=== PATIENT | male | born 1995 | race Two or more races ===

== ENCOUNTER 2021-04-17 07:43 | Emergency (ER) | payer SELFPAY ==
[~2021-04-17] VITALS: Ht 172.7 cm; Wt 91.0 kg
[2021-04-17] MEDS ORDERED: DICYCLOMINE 10 MG/5 ML ORAL SYR PO STA (08:04)
[2021-04-17] MEDS ORDERED: VISCOUS LIDOCAINE 2% 15 ML UDC PO STA (08:04)
[2021-04-17] MEDS ORDERED: ONDANSETRON 4MG ODT PO STA (08:04)
[2021-04-17] MEDS ORDERED: MAGNESIUM/ALUMINUM HYDROXIDE/SIMETHICONE 30ML UDC PO STA (08:04)
[2021-04-17] MEDS ORDERED: FAMOTIDINE 20MG/2ML VIAL IV ONE (08:15)
[2021-04-17 08:48] LABS: CHLORIDE 107 mEq/L (98-107)
[2021-04-17 08:50] LABS: BASOPHILS % 0.6 % (0.0-2.0); EOSINOPHILS % 3.2 % (0.0-5.0); HEMATOCRIT. 44.7 % (42.0-52.0); HEMOGLOBIN. 15.6 g/dL (14.0-18.0); LYMPHOCYTES % 41.6 % (20.0-50.0); MEAN CORPUSCULAR HEMOGLOBIN 31.3 pg (28.0-32.0); MEAN CORPUSCULAR VOLUME 89.7 fL (80.0-94.0); MEAN PLATELET VOLUME 8.9 fl (7.4-10.4); MONOCYTES % 6.9 % (2.0-8.0); NEUTROPHILS % 47.7 % (40.0-76.0); PLATELET 211 x1000/uL (130-400); RED BLOOD CELL COUNT 4.98 mill/uL (4.7-6.1); RED CELL DISTRIBUTION WIDTH 13.9 % (11.6-14.6)
[2021-04-17] MEDS ORDERED: PANT20TA17 PO (09:01)
[2021-04-17 09:40] VITALS: BP 125/72
== END 2021-04-17 09:47 | disposition home or self-care (01) ==
LOC: ER 07:43
DX: K21.9 Gastro-esophageal reflux disease without esophagitis (principal); F17.210 Nicotine dependence, cigarettes, uncomplicated; Z71.6 Tobacco abuse counseling
CPT/HCPCS: 36415; 80053; 83690; 85025; 96374; 99284; 99406; J3490; Q0162; Z7610

== ENCOUNTER 2021-04-18 05:56 | Emergency (ER) | payer SELFPAY ==
[~2021-04-18] VITALS: Ht 172.7 cm; Wt 91.0 kg
[~2021-04-18 05:56] MED LIST: PANT20TA17 PO
[2021-04-18] MEDS ORDERED: ONDANSETRON 4MG ODT PO STA (08:02)
[2021-04-18] MEDS ORDERED: DICYCLOMINE 10 MG/5 ML ORAL SYR PO STA (08:02)
[2021-04-18] MEDS ORDERED: MAGNESIUM/ALUMINUM HYDROXIDE/SIMETHICONE 30ML UDC PO STA (08:02)
[2021-04-18] MEDS ORDERED: VISCOUS LIDOCAINE 2% 15 ML UDC PO STA (08:02)
[2021-04-18] MEDS ORDERED: FAMOTIDINE 20MG TABLET PO ONE (08:15)
[2021-04-18 09:24] VITALS: BP 123/70
== END 2021-04-18 09:30 | disposition home or self-care (01) ==
LOC: ER 05:56
DX: K21.9 Gastro-esophageal reflux disease without esophagitis (principal); F17.200 Nicotine dependence, unspecified, uncomplicated; F12.10 Cannabis abuse, uncomplicated; F13.10 Sedative, hypnotic or anxiolytic abuse, uncomplicated
CPT/HCPCS: 99284; Q0162; Z7610

== ENCOUNTER 2024-05-08 22:31 | Emergency (ER) | payer MEDICAID ==
[~2024-05-08] VITALS: Ht 180.3 cm; Wt 80.0 kg
[2024-05-08] MEDS: LIDOCAINE HCL/EPINEPHRINE 1%-EPI 1:100,000 20 ML VIAL INFIL ONE (00:20)
[~2024-05-08 22:31] MED LIST changes: +NALO4SPR BOTHNSTRLS
[2024-05-08 22:33] VITALS: TEMP 98.2; O2SAT 96
[2024-05-08] MEDS: ONDANSETRON HCL 4MG/2ML INJ IV STA (22:45)
[2024-05-08] MEDS: MORPHINE SULFATE 4 MG/ML INJ (FOR IV/IM USE) IV STA (22:45)
[2024-05-08] MEDS: SODIUM CHLORIDE 0.9% 1,000 ML IV ONE (22:47)
[2024-05-08 22:52] LABS: BASOPHILS % 0.4 % (0.0-2.0); EOSINOPHILS % 1.3 % (0.0-5.0); HEMATOCRIT. 45.9 % (42.0-52.0); HEMOGLOBIN. 15.1 g/dL (14.0-18.0); MEAN CORPUSCULAR HEMOGLOBIN 31.2 pg (28.0-32.0); MEAN CORPUSCULAR HGB CONC 32.9 g/dL (31.0-37.0); MEAN CORPUSCULAR VOLUME 94.8 fL (80.0-94.0); MEAN PLATELET VOLUME 9.4 fl (7.4-10.4); MONOCYTES % 4.8 % (2.0-8.0); NEUTROPHILS % 61.5 % (40.0-76.0); PLATELET 247 x1000/uL (130-400); RED BLOOD CELL COUNT 4.84 mill/uL (4.7-6.1); RED CELL DISTRIBUTION WIDTH 14.1 % (11.6-14.6); WHITE BLOOD COUNT 13.1 x1000/uL (4.5-11.0)
[2024-05-08 22:57] LABS: CHLORIDE 105 mEq/L (98-107); POTASSIUM 3.8 mEq/L (3.5-5.1); SODIUM 138 mEq/L (136-145)
[2024-05-08 22:58] LABS: CALCIUM 9.6 mg/dL (8.7-10.4); CARBON DIOXIDE 17 mEq/L (21-32)
[2024-05-08 23:03] LABS: CREATININE 1.1 mg/dL (0.6-1.3); GLUCOSE 153 mg/dL (70-105); UREA NITROGEN BLOOD 10 mg/dL (9-23)
[2024-05-08 23:04] LABS: ETHANOL BLOOD < 10 mg/dL (<10)
[2024-05-08] MEDS ORDERED: IOHEXOL-300 100 ML BOTTLE ONE (23:28)
[2024-05-08] MEDS: TETANUS, DIPHTHERIA, PERTUSSIS VAC/PF 0.5ML (>10YR OLD) IM ONE (23:35)
[2024-05-08] MEDS: CEFAZOLIN 1000MG PREMIX 50 ML IV ONE (23:35)
[2024-05-09] MEDS: BACITRACIN ZINC OINT UDPKT TOP ONE ×3 (00:35)
[2024-05-09] MEDS ORDERED: IOHEXOL-300 100 ML BOTTLE ONE (04:19)
[2024-05-09] MEDS ORDERED: IBUP-2029 MT (04:52)
[2024-05-09] MEDS ORDERED: CEPH500C2 MT (04:52)
[2024-05-09 04:53] VITALS: BP 141/88; PULSE 71; RESP 14
== END 2024-05-09 05:41 | disposition home or self-care (01) ==
LOC: ER 22:31
DX: S01.01XA Laceration without foreign body of scalp, initial encounter (principal); F12.10 Cannabis abuse, uncomplicated; R51.9 Headache, unspecified; X99.1XXA Assault by knife, initial encounter; Y93.89 Activity, other specified; Y92.89 Other specified places as the place of occurrence of the external cause; Y99.8 Other external cause status
CPT/HCPCS: 80048; 80320; 85025; 86850; 86900; 86901; 36415; 71045; 73090; 73560; 70450; 71260; 74177; 90715; 12004; 12011; 90471; 96361; 96365; 96375; 99291; Q9967 ×2; J3490; J2405; J2270; J7030; Z7610; J0690; G0480

== ENCOUNTER 2024-09-10 19:59 | Emergency (ER) | payer MEDICAID ==
[~2024-09-10] VITALS: Ht 170.2 cm; Wt 78.7 kg
[~2024-09-10 19:59] MED LIST changes: +CEPH500C2 MT; +IBUP-2029 MT
[2024-09-10 20:07] VITALS: O2SAT 98
[2024-09-10] MEDS ORDERED: ACET-2708 MT (23:50)
[2024-09-11 00:09] VITALS: BP 114/76; PULSE 71; RESP 19; TEMP 36.83628; O2SAT 100
== END 2024-09-11 00:08 | disposition home or self-care (01) ==
LOC: ER 19:59
DX: S50.812A Abrasion of left forearm, initial encounter (principal); F12.10 Cannabis abuse, uncomplicated; F13.20 Sedative, hypnotic or anxiolytic dependence, uncomplicated; Z79.899 Other long term (current) drug therapy; W22.8XXA Striking against or struck by other objects, initial encounter; Y93.89 Activity, other specified; Y92.89 Other specified places as the place of occurrence of the external cause; Y99.8 Other external cause status
CPT/HCPCS: 73090; 73110; 73590; 29125; 99284; Z7610